=== PATIENT | female | born 1955 | race Caucasian/White ===

== ENCOUNTER → 2017-07-04 | Outpatient (CLI) | payer BC ==
--- NOTE | 2017-07-04 12:45 | ECHOS ---
STRESS ECHOCARDIOGRAM DATE OF SERVICE: 07/04/2017 INDICATIONS: Hypertension. MEDICATIONS: Aspirin. BASELINE HEART RATE: 71 BASELINE BLOOD PRESSURE: 143/80 MAXIMUM HEART RATE: 143 MAXIMUM BLOOD PRESSURE: 165/82 85% MPHR: 135 100% MPHR: 159 METS: 9.1 MAXIMUM STAGE REACHED: III TOTAL EXERCISE TIME: 8 minutes CLINICAL INFORMATION: Baseline EKG revealed normal sinus rhythm without significant ST-T changes. Patient walked for 8 minutes on a standard Mike protocol. Achieved a maximal heart rate of 143 beats per minute, which is more than 85% of predicted maximal. She developed fatigue and shortness of breath, but did not have angina. Rare PVCs were noted. By EKG criteria, this is a negative stress test with fair exercise capacity. Baseline echo images reveal an area of hypokinesis involving the inferobasal portion of left ventricle suggestive of prior myocardial infarction. There is no clear-cut clinical history to suggest the same. The rest of the myocardium seemed to contract very well. At peak exercise, there was good augmentation of left ventricular wall motion and wall thickening of all segments except the inferobasal area where there seems to be evidence of prior myocardial infarction. Sometimes it is very difficult to discern the inferobasal segment and the possibility of this being a false-positive cannot be totally excluded. IMPRESSION: 1. Fair exercise capacity with a negative stress test by EKG criteria. 2. Abnormal stress echocardiogram with inferobasal hypokinesia at rest suggestive prior myocardial infarction without stress-induced ischemia. The inferobasal segment is notoriously difficult to call and possibility of this being a false- positive should be considered. Clinical correlation is suggested. MMODL / IJN: [id number] /
== END | disposition home or self-care (01) ==
LOC: RADNMMAIN 09:50
PROVIDERS: ATTEND Family Medicine
DX: R93.1 Abnormal findings on diagnostic imaging of heart and coronary circulation (principal); I10 Essential (primary) hypertension
CPT/HCPCS: 93017; 93350

== ENCOUNTER → 2017-07-09 | Outpatient (CLI) | payer BC ==
--- NOTE | 2017-07-09 19:02 | CT ---
EXAMINATION TYPE: CT angio head neck DATE OF EXAM: 07/09/2017 HISTORY: Carotid stenosis. COMPARISON: NONE CT DLP: 401 mGycm. Automated Exposure Control for Dose Reduction was Utilized. TECHNIQUE: CTA scan of the neck is performed with IV Contrast, patient injected with 65ml mL of Omni paque 350, axial images are obtained, coronal and sagittal reformatted images are reviewed. Three-D r econstructed images are created on an independent workstation and reviewed. FINDINGS: There is normal branching pattern of the great vessels on the aortic arch. Vertebral arteries appear normal. There is arterial flow in the common internal and external carotid arteries. The carotid glenn ry bifurcations appear widely patent. There is no evidence of carotid stenosis at the bifurcations. T here is no evidence of aneurysm or dissection. There appears to be a stent in the distal left internal carotid artery extending from the level of C2 to the temporal bone. There appears to be normal contrast opacification of the internal carotid glenn bella at the skull base. There is intracranial symmetric contrast density in the internal carotid glenn bella. There is arterial flow in the anterior middle and posterior cerebral arteries. There is arterial flow in the vertebrobasilar artery system. There is no mass effect. There is no evidence of intracranial aneurysm or neovascularity. I see no evidence of stenosis. There is normal contrast opacification of the venous sinuses. CONCLUSION: Left distal internal carotid artery stent appears to be patent. No evidence of hemodynamically signif icant stenosis.
== END | disposition home or self-care (01) ==
LOC: RADCTMAIN 16:14
PROVIDERS: ATTEND Neurological Surgery
DX: I65.29 Occlusion and stenosis of unspecified carotid artery (principal); Z95.828 Presence of other vascular implants and grafts
CPT/HCPCS: 70496; 70498; Q9967

== ENCOUNTER → 2017-07-28 | Outpatient (CLI) | payer BC ==
--- NOTE | 2017-07-29 14:10 | MM ---
Reason for exam: screening (asymptomatic). Last mammogram was performed 4 years and 10 months ago. History: Patient is postmenopausal. Family history of breast cancer in maternal aunt, breast cancer in cousin, and breast cancer in mother. Took estrogen for 3 years. Physical Findings: Nurse did not find any significant physical abnormalities on exam. MG 3D Screening Mammo W/Cad Bilateral CC and MLO view(s) were taken. Prior study comparison: September 15, 2012, bilateral digital screening mammo w/CAD. September 11, 2010, bilateral digital screening mammo w/CAD. The breast tissue is heterogeneously dense. This may lower the sensitivity of mammography. There is a 4mm mass in the lower outer quadrant of the right breast at middle depth and a 4mm mass in the lower inner quadrant of the left breast at a middle depth. There is a group of 3mm calcifications in the upper outer quadrant of the left breast at middle depth 6-7cm from nipple. ASSESSMENT: Incomplete: need additional imaging evaluation, BI-RAD 0 RECOMMENDATION: Special view mammogram of both breasts. If lesion persists on supplemental views, image directed ultrasound is recommended. [facility] will attempt to contact patient to return for supplemental views and ultrasound if indicated.
== END | disposition home or self-care (01) ==
LOC: RADMAMWWP 14:43
PROVIDERS: ATTEND Family Medicine
DX: Z12.31 Encounter for screening mammogram for malignant neoplasm of breast (principal)
CPT/HCPCS: 77063; 77067

== ENCOUNTER → 2017-08-05 | Outpatient (CLI) | payer BC ==
--- NOTE | 2017-08-06 07:28 | MM ---
Reason for exam: additional evaluation requested from abnormal screening. Last mammogram was performed less than 1 month ago. History: Patient is postmenopausal. Family history of breast cancer in maternal aunt, breast cancer in cousin, and breast cancer in mother. Took estrogen for 3 years. Physical Findings: Nurse did not find any significant physical abnormalities on exam. MG 3D Work Up W/Cad JACK Bilateral spot compression CC, spot compression MLO, and ML view(s) were taken. ML with magnification and CC with magnification view(s) were taken of the left breast. Prior study comparison: July 28, 2017, bilateral MG 3d screening mammo w/ cad. September 15, 2012, bilateral digital screening mammo w/CAD. Finding #1: There is a 4 mm round mass in the lower outer quadrant, anterior position of the right breast persists. Finding #2: There are typically benign grouped/clustered calcifications in the upper outer quadrant of the left breast. Finding #3-- 5mm round left anterior lower inner quadrant. These results were verbally communicated with the patient and result sheet given to the patient on 08/05/17. ASSESSMENT: Incomplete: need additional imaging evaluation, BI-RAD 0 RECOMMENDATION: Ultrasound of both breasts.Findings 1 and 3 MTDD
--- NOTE | 2017-08-06 07:31 | USB ---
Reason for exam: additional evaluation requested from abnormal screening. History: Patient is postmenopausal. Family history of breast cancer in maternal aunt, breast cancer in cousin, and breast cancer in mother. Took estrogen for 3 years. US Breast Workup Limited JACK Right breast ultrasound includes all four quadrants, the retroareolar region and axilla. Finding demonstrates a 4 x 3 x 4mm oval, cystic lesion at 7 o'clock and a 2 x 2 x 3mm oval, cystic lesion at 10 o'clock. Left breast ultrasound includes all four quadrants, the retroareolar region and axilla. Finding demonstrates a 5 x 2 x 6mm lobular, mixed lesion at the posterior nipple. These results were verbally communicated with the patient and result sheet given to the patient on 08/05/17. ASSESSMENT: Probably benign, BI-RAD 3 Benign, BI-RAD 2 finding in the right breast. Probably benign, BI-RAD 3 finding in the left breast. RECOMMENDATION: Follow-up diagnostic mammogram and ultrasound of the left breast in 6 months.
== END | disposition home or self-care (01) ==
LOC: RADMAMWWP 14:26
PROVIDERS: ATTEND Family Medicine
DX: R92.2 Inconclusive mammogram (principal); R92.8 Other abnormal and inconclusive findings on diagnostic imaging of breast
CPT/HCPCS: 77066; 76642; G0279

== ENCOUNTER → 2018-01-27 | Outpatient (CLI) | payer SELFPAY ==
--- NOTE | 2018-01-27 12:53 | MM ---
Reason for exam: follow-up at short interval from prior study. Last mammogram was performed 6 months ago. History: Patient is postmenopausal. Family history of breast cancer in maternal aunt, breast cancer in cousin, and breast cancer in mother. Took estrogen for 3 years. Physical Findings: Nurse did not find any significant physical abnormalities on exam. MG 3D Diag Mammo W/Cad LT CC and MLO view(s) were taken of the left breast. Prior study comparison: August 05, 2017, bilateral MG 3d work up w/cad JACK. July 28, 2017, bilateral MG 3d screening mammo w/cad. The breast tissue is heterogeneously dense. This may lower the sensitivity of mammography. There is a stable sonographically occult lower inner quadrant mass at middle depth. There is a stable 3mm group of left upper outer quadrant calcifications at middle depth. Continued 6 month follow up. No new suspicious abnormality. These results were verbally communicated with the patient and result sheet given to the patient on 01/27/18. ASSESSMENT: Probably benign, BI-RAD 3 RECOMMENDATION: Follow-up diagnostic mammogram of both breasts in 6 months. Ultrasound of the left breast in 6 months.
--- NOTE | 2018-01-27 12:55 | USB ---
Reason for exam: follow-up at short interval from prior study. History: Patient is postmenopausal. Family history of breast cancer in maternal aunt, breast cancer in cousin, and breast cancer in mother. Took estrogen for 3 years. US Breast LT Left complete breast ultrasound includes all four quadrants, the retroareolar region and axilla. Finding demonstrates duct ectasia at the posterior nipple and a 0.3 x 0.3 x 0.2cm cystic lesion at the posterior nipple, appears smaller than prior but more irregular. Likely involuting cyst. 6 month follow up. These results were verbally communicated with the patient and result sheet given to the patient on 01/27/18. ASSESSMENT: Probably benign, BI-RAD 3 RECOMMENDATION: Ultrasound of the left breast in 6 months.
== END | disposition home or self-care (01) ==
LOC: RADMAMWWP 09:38
PROVIDERS: ATTEND Family Medicine
DX: R92.8 Other abnormal and inconclusive findings on diagnostic imaging of breast (principal)
CPT/HCPCS: 77061; 77065

== ENCOUNTER → 2020-09-25 | Outpatient (CLI) | payer MEDICARE, BC ==
--- NOTE | 2020-09-25 15:50 | XR ---
EXAMINATION TYPE: XR chest 2V DATE OF EXAM: 09/25/2020 COMPARISON: Chest x-ray 03/01/2014 HISTORY: History of COPD, Z 72.0, Z 87.09 TECHNIQUE: Frontal and lateral views of the chest are obtained. FINDINGS: There is no focal air space opacity, pleural effusion, or pneumothorax seen. The cardiac silhouette size is stable. Pericardial cyst at the right cardiophrenic angle is again seen. The aorta is dense. The osseous structures are intact, there is thoracic spondylosis. IMPRESSION: No acute cardiopulmonary process.
== END | disposition home or self-care (01) ==
LOC: RADXRMAIN 10:27
PROVIDERS: ATTEND Family Medicine
DX: J44.9 Chronic obstructive pulmonary disease, unspecified (principal)
CPT/HCPCS: 71046

== ENCOUNTER → 2020-09-25 | Outpatient (CLI) | payer MEDICARE, BC ==
--- NOTE | 2020-09-25 13:23 | MM ---
Reason for exam: additional evaluation requested from prior study. Last mammogram was performed 2 years and 8 months ago. History: Patient is postmenopausal. Family history of breast cancer in maternal aunt, breast cancer in cousin, and breast cancer in mother. Took estrogen for 3 years. Physical Findings: Nurse did not find any significant physical abnormalities on exam. MG 3D Diag Mammo W/Cad JACK Bilateral CC and MLO view(s) were taken. Prior study comparison: January 27, 2018, left breast MG 3d diag mammo w/cad LT. August 05, 2017, bilateral MG 3d work up w/cad JACK. The breast tissue is heterogeneously dense. This may lower the sensitivity of mammography. Stable benign calcifications. There is chronic nodularity bilaterally. There is no dominant lesion. There is no discrete abnormality including area of concern. No significant new findings when compared with previous films. These results were verbally communicated with the patient and result sheet given to the patient on 09/25/20. ASSESSMENT: Incomplete: need additional imaging evaluation, BI-RAD 0 RECOMMENDATION: Ultrasound of the left breast. Manage patient on a clinical basis.
--- NOTE | 2020-09-25 13:24 | USB ---
Reason for exam: additional evaluation requested from abnormal screening. History: Patient is postmenopausal. Family history of breast cancer in maternal aunt, breast cancer in cousin, and breast cancer in mother. Took estrogen for 3 years. US Breast LT Technologist: Farheen Hopson Left complete breast ultrasound includes all four quadrants, the retroareolar region and axilla. Finding demonstrates a 1.9 x 0.7cm lymph node at the axilla and a questionable duct at the posterior nipple. These results were verbally communicated with the patient and result sheet given to the patient on 09/25/20. ASSESSMENT: Benign, BI-RAD 2 RECOMMENDATION: Routine screening mammogram of both breasts in 1 year. Manage patient on a clinical basis.
== END | disposition home or self-care (01) ==
LOC: RADMAMWWP 08:54
PROVIDERS: ATTEND Family Medicine
DX: R92.8 Other abnormal and inconclusive findings on diagnostic imaging of breast (principal); Z80.3 Family history of malignant neoplasm of breast; Z78.0 Asymptomatic menopausal state
CPT/HCPCS: 77066; 76641; G0279; 77062

== ENCOUNTER → 2020-10-18 | Outpatient (CLI) | payer MEDICARE ==
--- NOTE | 2020-10-18 15:39 | US ---
EXAMINATION TYPE: US carotid duplex BILAT DATE OF EXAM: 10/18/2020 COMPARISON: US 11/04/13 CLINICAL HISTORY: I65.22 Occlusion and stenosis of left carotid glenn. Left sided stent. Pt states hx stroke EXAM MEASUREMENTS: RIGHT: Peak Systolic Velocity (PSV) cm/sec ----- Right CCA: 131.9 ----- Right ICA: 114.8 ----- Right ECA: 113.5 ICA/CCA ratio: 0.9 RIGHT: End Diastole cm/sec ----- Right CCA: 41.4 ----- Right ICA: 28.0 ----- Right ECA: 26.7 LEFT: Peak Systolic Velocity (PSV) cm/sec ----- Left CCA: 82.4 ----- Left ICA: 114.1 ----- Left ECA: 64.5 ICA/CCA ratio: 1.4 LEFT: End Diastole cm/sec ----- Left CCA: 29.3 ----- Left ICA: 26.8 ----- Left ECA: 15.0 VERTEBRALS (direction of flow): Right Vertebral: Antegrade Left Vertebral: Antegrade Rhythm: Normal Mild atherosclerotic changes. Tortuous left side. No stenosis seen. IMPRESSION: 1. Atheromatous plaquing without flow limiting stenosis. Criteria for Assigning % of Stenosis / Diameter reduction (Estimation based on the indirect measurements of the internal carotid artery velocities (ICA PSV). 1. Normal (no stenosis)=ICA PSV < 125 cm/s: ratio < 2.0: ICA EDV<40 cm/s. 2. Less than 50% stenosis=ICA PSV < 125 cm/s: ratio < 2.0: ICA EDV<40 cm/s. 3. 50 to 69% stenosis=ICA PSV of 125 to 230 cm/s: ration 2.0 ? 4.0: ICA EDV 40-100 cm/s. 4. Greater than 70% stenosis to near occlusion= ICA PSV > 230 cm/s: ratio > 4.0: ICA EDV > 100 cm/s. 5. Near occlusion= ICA PSV velocities may be low or undetectable: variable ratio and ICA EDV. 6. Total occlusion=unable to detect flow.
== END | disposition home or self-care (01) ==
LOC: RADUSWWP 14:58
PROVIDERS: ATTEND Family Medicine
DX: I65.23 Occlusion and stenosis of bilateral carotid arteries (principal)
CPT/HCPCS: 93880

== ENCOUNTER → 2020-12-20 | Outpatient (CLI) | payer MEDICARE ==
--- NOTE | 2020-12-20 22:11 | CT ---
EXAMINATION TYPE: CT chest wo/w con DATE OF EXAM: 12/20/2020 COMPARISON: Chest x-ray 09/25/2020, CT chest abdomen pelvis 11/11/2012 HISTORY: Aortic ectasia CT DLP: 667.30 mGycm Automated exposure control for dose reduction was used. CONTRAST: CT scan of the chest is performed with IV Contrast, patient injected with 80 mL of Isovue 300. FINDINGS: LUNGS: The lungs are grossly clear, there is no concerning parenchymal mass or nodule identified. T here is no pleural effusion or pneumothorax seen. The tracheobronchial tree is patent. MEDIASTINUM: There are no greater than 1 cm hilar or mediastinal lymph nodes. No pericardial effusi on is seen. AORTA: Ascending aorta measures 3.9 cm in size, aortic root is not dilated. Proximal descending aort a measures 2.4 cm OTHER: There is a water density focus present at the right cardiophrenic angle measuring approximatel y 10.6 x 8.7 x 4.2 cm consistent with pericardial cyst and is grown slightly in interval. Parapelvic cysts noted within the kidneys incidentally. IMPRESSION: Borderline aneurysmal measurement of the ascending aorta. Pericardial cyst is again seen .
== END | disposition home or self-care (01) ==
LOC: RADCTMAIN 17:56
PROVIDERS: ATTEND Internal Medicine Interventional Cardiology
DX: I77.819 Aortic ectasia, unspecified site (principal); Q24.8 Other specified congenital malformations of heart; I71.2 Thoracic aortic aneurysm, without rupture
CPT/HCPCS: 82565; 84520; 71270; 36415; Q9967

== ENCOUNTER 2021-01-16 09:00 | Day surgery (SDC) | payer MEDICARE ==
[2021-01-12 11:55] VITALS: BMI 30.9
[2021-01-16] MEDS ORDERED: NITROGLYCERIN SL TABS 0.4 MG TAB SUBLINGUAL PRN (09:05)
[2021-01-16] MEDS ORDERED: ALPRAZolam 0.25 MG TAB PO PRN (09:05)
[2021-01-16] MEDS ORDERED: ALPRAZolam 0.5 MG TAB PO PRN (09:05)
[2021-01-16] MEDS ORDERED: SODIUM CHLORIDE 0.9% 1,000 ML in EMPTY BAG 1 BAG IV ONE (09:05)
[2021-01-16] MEDS ORDERED: HEPARIN SODIUM,PORCINE 2,500 UNIT in SODIUM CHLORIDE 0.9% 250 ML IRRIGATION PRN (09:05)
[2021-01-16] MEDS ORDERED: ASPIRIN 325 MG TAB PO STA (09:05)
[2021-01-16] MEDS ORDERED: HEPARIN SODIUM,PORCINE 10,000 UNIT in SODIUM CHLORIDE 0.9% 1,000 ML IRRIGATION PRN (09:05)
[2021-01-16] MEDS ORDERED: ATORVASTATIN 80 MG TAB PO STA (09:05)
[2021-01-16 09:35] LABS: Basophils # (A) 0.1 k/uL (0-0.2); Basophils % (A) 1 %; Eosinophils # (A) 0.3 k/uL (0-0.7); Eosinophils % (A) 4 %; HCT 45.1 % (34.0-46.0); HGB 15.6 gm/dL (11.4-16.0); Lymphocytes # (A) 1.9 k/uL (1.0-4.8); Lymphocytes % (A) 28 %; MCH 31.4 pg (25.0-35.0); MCHC 34.5 g/dL (31.0-37.0); MCV 90.8 fL (80.0-100.0); Mean Platelet Volume 7.4; Monocytes # (A) 0.5 k/uL (0-1.0); Monocytes % (A) 7 %; Neutrophils # (A) 3.9 k/uL (1.3-7.7); Neutrophils % (A) 59 %; Platelet Count 209 k/uL (150-450); RBC 4.96 m/uL (3.80-5.40); RDW 12.7 % (11.5-15.5); WBC 6.6 k/uL (3.8-10.6)
[2021-01-16 10:43] LABS: African American GFR (CKD) >90 (>60 ml/min/1.73 sqM); Anion Gap 5 mmol/L; Blood Urea Nitrogen 14 mg/dL (7-17); Calcium 9.9 mg/dL (8.4-10.2); Carbon Dioxide 29 mmol/L (22-30); Chloride 106 mmol/L (98-107); Glucose 89 mg/dL (74-99); Non-African American GFR(CKD) 81 (>60 ml/min/1.73 sqM); Sodium 140 mmol/L (137-145)
[2021-01-16 11:03] LABS: Potassium 4.5 mmol/L (3.5-5.1)
[2021-01-16] MEDS ORDERED: SODIUM CHLORIDE 0.9% 1,000 ML IV ONE (12:10)
[2021-01-16] MEDS ORDERED: MIDAZOLAM 2 MG/2 ML VIAL IV ONE ×2 (13:11→13:18)
[2021-01-16] MEDS: fentaNYL (PF) 50 MCG/ML 2 ML AMP IV ONE ×2 (13:15→13:20)
[2021-01-16] MEDS ORDERED: LIDOCAINE 1% INJ 10MG/ML (20 ML MDV) SQ ONE (13:16)
[2021-01-16] MEDS: VERAPAMIL SYRINGE (5 MG/10 ML) INTRAARTER ONE ×2 (13:18→13:23)
[2021-01-16] MEDS ORDERED: HEPARIN SODIUM 1,000 UN/ML (10ML VL) IV ONE (13:19)
[2021-01-16] MEDS ORDERED: IOPAMIDOL-370 100ML BTL INJ ONE (13:28)
[2021-01-16] MEDS ORDERED: RX INFO: IV CONTRAST WAS GIVEN 1 EACH MISC MISCELLANE PRN (13:39)
[2021-01-16] MEDS ORDERED: HYDROmorphone 1 MG/ML 1 ML SYRINGE ONE ×2 (13:42→16:37)
[2021-01-16] MEDS ORDERED: SODIUM CHLORIDE 0.9% 1,000 ML IV SCH (13:45)
--- NOTE | 2021-01-16 15:25 | CC ---
CARDIAC CATHETERIZATION REPORT DATE OF SERVICE: January 16, 2021. PERFORMING PHYSICIAN: Gavin Sandoval MD. PROCEDURE PERFORMED: 1. Selective right and left coronary angiogram. 2. Left heart catheterization. INDICATION: This is a pleasant 65-year-old female patient with carotid disease as well as multiple risk factors including dyslipidemia and significant family history, continues to have intermittent episodes of chest discomfort. She underwent an exercise treadmill stress test and that came into be unremarkable but because she continues to be symptomatic, a heart catheterization was advised. APPROACH: Right radial artery. COMPLICATION: None. LEVEL OF SEDATION: Moderate with sedation length of 14 minutes. PROCEDURE DESCRIPTION: After obtaining informed consent, the patient was brought to the cardiac microbiology lab analyst. The right radial artery was cannulated using micropuncture technique, the micropuncture wire passed easily then I placed a 6-Armenian sheath at the right radial artery. Subsequently, I gave the patient 2 mg of verapamil IA and 8000 units of heparin IV. Selective right and left coronary angiogram were performed using JR4 and JL3.5 catheters. Left heart catheterization was performed using the JR4 catheter which crossed the aortic valve then I did pullback across the valve. Please note that the patient was having a right arm discomfort throughout the procedure and for future heart catheterization, right groin approach would be preferable. SELECTIVE CORONARY ANGIOGRAM: 1. The RCA is a large caliber vessel. It is a dominant vessel, appeared to be angiographically normal. It distally bifurcates into PDA and PLV branches, both appeared to be angiographically normal. 2. The left main is angiographically normal. It bifurcates into LCX and LAD. 3. The LCX is a moderate caliber vessel. It is a nondominant vessel. The LCX is angiographically normal. It gives rise into an OM branch which appeared to be normal. 4. The LAD: The proximal LAD appeared to be angiographically normal. The mid LAD by the bifurcation of the diagonal branch appeared to have a lesion in the range of 50%. The LAD at that portion gives rise into a large diagonal branch which seems to be angiographically normal. The mid and distal LAD appeared to be angiographically normal. HEMODYNAMICS: The LVEDP was 10 mmHg without significant gradient across the aortic valve. CONCLUSION: Intermediate lesion involving the mid LAD appeared to be in the range of 50-60 percent. POSTPROCEDURE MANAGEMENT: 1. Maximize medical treatment. 2. Consider myocardial perfusion imaging stress test if she continues to be symptomatic to assess for ischemia in the LAD. 3. Follow up with the patient. MMBEBO / IJN: [id number] /
[2021-01-16] MEDS ORDERED: ACETAMINOPHEN TAB 325 MG TAB ONE (16:09)
[2021-01-16] MEDS ORDERED: ONDANSETRON 4 MG/2 ML VIAL ONE (17:49)
[2021-01-16] MEDS ORDERED: ATORVASTATIN 40 MG TAB PO SCH (21:00)
[2021-01-17 07:27] VITALS: BP 115/74; PULSE 59; RESP 17; TEMP 97.4
[2021-01-17] MEDS: SODIUM CHLORIDE 0.9% 1,000 ML IV SCH (07:46)
[2021-01-17] MEDS ORDERED: CHOLECALCIFEROL 25 MCG (1000 IU) TABLET PO SCH (09:00)
[2021-01-17] MEDS ORDERED: ASPIRIN 81 MG PO SCH (09:00)
--- NOTE | 2021-01-17 14:45 | P.DS ---
Providers Attending physician: Gavin Sandoval Primary care physician: [facility] Hospital Course: INTERVAL HISTORY: The patient is a 65-year-old female admitted to the hospital by Dr. Dr. Sandoval. Patient isn't a past medical history of carotid disease, dyslipidemia, significant family history. She continued to have intermittent episodes of chest discomfort. She underwent exercise treadmill stress test which came to be unremarkable but continues to be symptomatic. A heart jose terization was advised. Patient underwent cardiac catheterization on 01/16/2021 which revealed intermediate lesion involving the mid LAD appear to be in the range of 50-60%. At this time is recommended to maximize medical therapy. PHYSICAL EXAMINATION: Blood pressure 115/74, heart rate 59, respirations 16, temp 97.7. Patient is 95% on room air. HEART: S1, S2 normal. LUNGS: Clear to auscultation. NECK: Supple. ABDOMEN: Soft. EXTREMITIES: 2+ peripheral pulses. Right radial cath site, clean, dry, bruising noted, small hematoma. Tender to palpation. LAB DATA: from 01/16 revealed CBC unremarkable, sodium 140, potassium 4.5, BUN 14, serum, 0.77 FINAL IMPRESSION: 1. Coronary artery disease 2. Dyslipidemia PLAN: Reviewed heart cath results with patient. Patient may be able to be disch arged home today. Patient will continue her aspirin 81 mg daily atorvastatin 40 mg nightly. This was discussed with patient. We will make him a follow-up appointment with Dr. Sandoval. Patient has an appointment on 01/24/2020 11:45 AM Plan - Discharge Summary Discharge Rx Participant: No New Discharge Prescriptions: Continue Aspirin 81 mg PO DAILY Cholecalciferol [Vitamin D3 (25 Mcg = 1000 Iu)] 2,000 units PO DAILY Atorvastatin [Lipitor] 40 mg PO HS Discharge Medication List Aspirin 81 mg PO DAILY 01/12/21 [History] Atorvastatin [Lipitor] 40 mg PO HS 01/12/21 [History] Cholecalciferol [Vitamin D3 (25 Mcg = 1000 Iu)] 2,000 units PO DAILY 01/12/21 [History] Follow up Appointment(s)/Referral(s): Gavin Sandoval MD [STAFF PHYSICIAN] - 01/23/21 11:45 am Patient Instructions/Handouts: Moderate Sedation (DC), After Radial Heart Catheterization (GEN) Activity/Diet/Wound Care/Special Instructions: No lifting/pushing/pulling greater than 5 lbs for 5 days with right arm. Remove dressing tomorrow afternoon. No need to re-dress. You may shower tomorrow after removal of dressing. No soaking puncture site for 3 days (such as swim or tub). You may drive . Discharge Disposition: HOME SELF-CARE
== END 2021-01-17 11:25 | disposition home or self-care (01) ==
LOC: CATHCVL 09:00 → 6NMEDSUR 13:29 → CATHCVL 01-17 11:25
PROVIDERS: ATTEND Internal Medicine Interventional Cardiology
DX: I25.110 Atherosclerotic heart disease of native coronary artery with unstable angina pectoris (principal); E78.5 Hyperlipidemia, unspecified; Z82.49 Family history of ischemic heart disease and other diseases of the circulatory system; I73.9 Peripheral vascular disease, unspecified; F17.210 Nicotine dependence, cigarettes, uncomplicated; I08.0 Rheumatic disorders of both mitral and aortic valves; I65.23 Occlusion and stenosis of bilateral carotid arteries; Z79.899 Other long term (current) drug therapy; Z79.82 Long term (current) use of aspirin; Z86.73 Personal history of transient ischemic attack (TIA), and cerebral infarction without residual deficits; E78.00 Pure hypercholesterolemia, unspecified
CPT/HCPCS: 93458; 80048; 85025; C1894; J2250; J2405; J2001; J3010; J1644; J1170; Q9967

== ENCOUNTER → 2021-05-04 | Outpatient (CLI) | payer MEDICARE ==
--- NOTE | 2021-05-04 11:36 | USB ---
Reason for exam: clinical finding. History: Patient is postmenopausal. Family history of breast cancer in maternal aunt, breast cancer in cousin, and breast cancer in mother. Took estrogen for 3 years. Indicated problem(s): pain in the left breast. Physical Findings: Nurse did not find any significant physical abnormalities on exam. US Breast LT Prior study comparison: September 25, 2020, left breast US breast LT. Left complete breast ultrasound includes all four quadrants, the retroareolar region and axilla. Finding demonstrates no cystic or solid lesion seen. These results were verbally communicated with the patient and result sheet given to the patient on 05/04/21. ASSESSMENT: Negative, BI-RAD 1 RECOMMENDATION: Follow-up diagnostic mammogram of both breasts in 6 months. Can be scanned early diagnostic for changing clinical findings. Manage on a clinical basis with regard to pain.
== END | disposition home or self-care (01) ==
LOC: RADUSWWP 08:28
PROVIDERS: ATTEND Family Medicine
DX: N64.4 Mastodynia (principal); Z80.3 Family history of malignant neoplasm of breast; Z78.0 Asymptomatic menopausal state

== ENCOUNTER 2022-03-17 03:50 | Emergency (ER) | payer MEDICARE ==
[2022-03-17 03:56] VITALS: BP 127/80; PULSE 79; RESP 16; TEMP 98.1
[2022-03-17] MEDS ORDERED: SODIUM CHLORIDE 0.9% 1,000 ML IV ONE (04:32)
[2022-03-17] MEDS ORDERED: ONDANSETRON 4 MG/2 ML VIAL IVP STA (04:32)
[2022-03-17] MEDS ORDERED: MORPHINE SULFATE 4 MG/ML SYRINGE IV STA (04:32)
--- NOTE | 2022-03-17 04:33 | ED ---
Fall HPI - General Chief Complaint: Fall Stated Complaint: Fall, Shoulder Injury Time Seen by Provider: 03/17/22 03:51 Source: patient, EMS, RN notes reviewed, old records reviewed Mode of arrival: EMS Limitations: no limitations - History of Present Illness Initial Comments: This is a 66-year-old female presenting with mild intoxication mild alteration. Patient was brought in by EMS after falling off of her tach after getting out of her Jacuzzi. Patient is complaining of significant right-sided pain neck pain head pain back pain tox pain, right shoulder pain right hip pain. 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 Place Fall Occurred: home Loss of Consciousness: none Prolonged Down Time?: no Symptoms Prior to Fall: none Location: head, neck, chest, back, pelvis Location - Extremities: Right: Shoulder, Arm, Thigh Severity: moderate Severity scale (1-10): 6 Quality: sharp, dull, aching Context: tripped/slipped, alcohol use Associated Symptoms: denies - Related Data Home Medications Medication Instructions Recorded Confirmed Aspirin 81 mg PO DAILY 01/12/21 01/16/21 Atorvastatin [Lipitor] 40 mg PO HS 01/12/21 01/16/21 Cholecalciferol [Vitamin D3 (25 2,000 units PO DAILY 01/12/21 01/16/21 Mcg = 1000 Iu)] Allergies Allergy/AdvReac Type Severity Reaction Status Date / Time epinephrine AdvReac Rapid Verified 01/12/21 11:34 Heart Rate methylprednisolone acetate AdvReac Rapid Verified 01/12/21 11:34 [From Depo-Medrol] Heart Rate Review of Systems ROS Statement: Those systems with pertinent positive or pertinent negative responses have been documented in the HPI. ROS Other: All systems not noted in ROS Statement are negative. 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 aneurysm left carotid, hiatal hernia, chronic back pain, stroke in past-residual numbness tingling left face, doesn't need thyroid med anymore Last Myocardial Infarction Date:: Unknown History of Any Multi-Drug Resistant Organisms: None Reported Past Surgical History: Heart Catheterization, Hysterectomy, Tubal Ligation Additional Past Surgical History / Comment(s): Colonoscopy, ganglion cyst removed, EGD, Carotid stent left side Past Anesthesia/Blood Transfusion Reactions: No Reported Reaction Past Psychological History: No Psychological Hx Reported Smoking Status: Current every day smoker Past Alcohol Use History: None Reported Additional Past Alcohol Use History / Comment(s): 1ppd for 30 yrs. Past Drug Use History: None Reported General Exam Limitations: no limitations General appearance: alert, in no apparent distress, appears intoxicated Head exam: Present: atraumatic, normocephalic, normal inspection Eye exam: Present: normal appearance, PERRL, EOMI. Absent: scleral icterus, conjunctival injection, periorbital swelling ENT exam: Present: normal exam, mucous membranes moist Neck exam: Present: normal inspection. Absent: tenderness, meningismus, lymphadenopathy Respiratory exam: Present: normal lung sounds bilaterally. Absent: respiratory distress, wheezes, rales, rhonchi, stridor Cardiovascular Exam: Present: regular rate, normal rhythm, normal heart sounds. Absent: systolic murmur, diastolic murmur, rubs, gallop, clicks GI/Abdominal exam: Present: soft, normal bowel sounds. Absent: distended, tenderness, guarding, rebound, rigid Extremities exam: Present: normal inspection, full ROM, normal capillary refill. Absent: tenderness, pedal edema, joint swelling, calf tenderness Back exam: Present: normal inspection Neurological exam: Present: alert, oriented X3, CN II-XII intact Psychiatric exam: Present: normal affect, normal mood Skin exam: Present: warm, dry, intact, normal color. Absent: rash Course Vital Signs 03/17/22 03:54 Temperature 98.1 F Pulse Rate 79 Respiratory 16 Rate Blood Pressure 127/80 O2 Sat by Pulse 98 Oximetry - Reevaluation(s) Reevaluation #1: 03/17/22 04:53 Medical record is reviewed Reevaluation #2: 03/17/22 06:06 Patient's pain is improved, able to ambulate Reevaluation #3: 03/17/22 06:06 Patient informed results and questions are answered Medical Decision Making - Medical Decision Making 66 female status post fall slipped off a porch on the ground. Patient has right-sided pain. X-ray CT scans are negative. Patient is intoxicated, patient will be getting a ride home today and can be discharged - Lab Data Result diagrams: 03/17/22 05:01 03/17/22 05:01 Lab Results 03/17/22 03/17/22 Range/Units 05:01 05:01 WBC 9.3 (3.8-10.6) k/uL RBC 4.72 (3.80-5.40) m/uL Hgb 14.8 (11.4-16.0) gm/dL Hct 44.9 (34.0-46.0) % MCV 95.0 (80.0-100.0) fL MCH 31.4 (25.0-35.0) pg MCHC 33.1 (31.0-37.0) g/dL RDW 13.4 (11.5-15.5) % Plt Count 240 (150-450) k/uL MPV 8.1 Neutrophils % 67 % Lymphocytes % 24 % Monocytes % 4 % Eosinophils % 2 % Basophils % 1 % Neutrophils # 6.2 (1.3-7.7) k/uL Lymphocytes # 2.3 (1.0-4.8) k/uL Monocytes # 0.4 (0-1.0) k/uL Eosinophils # 0.2 (0-0.7) k/uL Basophils # 0.1 (0-0.2) k/uL Sodium 144 (137-145) mmol/L Potassium 4.2 (3.5-5.1) mmol/L Chloride 110 H (98-107) mmol/L Carbon Dioxide 18 L (22-30) mmol/L Anion Gap 16 mmol/L BUN 16 (7-17) mg/dL Creatinine 0.84 (0.52-1.04) mg/dL Est GFR (CKD-EPI)AfAm 84 (>60 ml/min/1.73 sqM) Est GFR (CKD-EPI)NonAf 73 (>60 ml/min/1.73 sqM) Glucose 93 (74-99) mg/dL Calcium 9.0 (8.4-10.2) mg/dL Phosphorus 3.8 (2.5-4.5) mg/dL Magnesium 2.1 (1.6-2.3) mg/dL Total Bilirubin 0.4 (0.2-1.3) mg/dL AST 65 H (14-36) U/L ALT 51 H (4-34) U/L Alkaline Phosphatase 80 (38-126) U/L Total Protein 7.3 (6.3-8.2) g/dL Albumin 4.4 (3.5-5.0) g/dL Serum Alcohol 187 mg/dL - Radiology Data Radiology results: report reviewed (CT brain C-spine chest and pelvis x-ray, right shoulder x-ray negative for traumatic injury), image reviewed Disposition Clinical Impression: Fall, Alcohol intoxication, Contusion of right shoulder Disposition: HOME SELF-CARE Condition: Good Instructions (If sedation given, give patient instructions): Fall Prevention (ED), Contusion in Adults (ED) Is patient prescribed a controlled substance at d/c from ED?: No Referrals: Laura Schultz MD [Primary Care Provider] - 1-2 days Time of Disposition: 06:10
[2022-03-17 05:16] LABS: Basophils # (A) 0.1 k/uL (0-0.2); Basophils % (A) 1 %; Eosinophils # (A) 0.2 k/uL (0-0.7); Eosinophils % (A) 2 %; HCT 44.9 % (34.0-46.0); HGB 14.8 gm/dL (11.4-16.0); Lymphocytes # (A) 2.3 k/uL (1.0-4.8); Lymphocytes % (A) 24 %; MCH 31.4 pg (25.0-35.0); MCHC 33.1 g/dL (31.0-37.0); Mean Platelet Volume 8.1; Monocytes # (A) 0.4 k/uL (0-1.0); Monocytes % (A) 4 %; Neutrophils # (A) 6.2 k/uL (1.3-7.7); Neutrophils % (A) 67 %; Platelet Count 240 k/uL (150-450); RBC 4.72 m/uL (3.80-5.40); RDW 13.4 % (11.5-15.5); WBC 9.3 k/uL (3.8-10.6)
[2022-03-17 05:31] LABS: Albumin 4.4 g/dL (3.5-5.0); Total Bilirubin 0.4 mg/dL (0.2-1.3); Total Protein 7.3 g/dL (6.3-8.2)
[2022-03-17 05:41] LABS: Magnesium 2.1 mg/dL (1.6-2.3); Phosphorus 3.8 mg/dL (2.5-4.5); Potassium 4.2 mmol/L (3.5-5.1)
--- NOTE | 2022-03-17 05:43 | CT ---
EXAMINATION TYPE: CT brain cspine wo con DATE OF EXAM: 03/17/2022 COMPARISON: None HISTORY: Fall CT DLP: 1300.9 mGycm Automated exposure control for dose reduction was used. There is mild cerebral cortical atrophy. There is no mass effect or midline shift. No sign of intracr anial hemorrhage. Calvarium is intact. No evidence of cerebral edema. Skull base is intact. There is normal aeration of the mastoid sinuses. The cervical vertebra have normal alignment. No compression fracture. Posterior elements are intact. There is multilevel mild facet arthropathy. There is some disc space narrowing and spur formation in the lower cervical spine. IMPRESSION: Spondylotic changes in the cervical spine. No fracture. Negative CT scan of the brain. No evidence of traumatic injury.
--- NOTE | 2022-03-17 05:45 | XR ---
EXAMINATION TYPE: XR chest 1V DATE OF EXAM: 03/17/2022 COMPARISON: NONE HISTORY: Fall. Pain TECHNIQUE: Single view FINDINGS: There is no heart failure nor confluent pneumonic infiltrate. Costophrenic angles are clear . There are no hilar masses. IMPRESSION: No active cardiopulmonary disease.
--- NOTE | 2022-03-17 05:47 | XR ---
EXAMINATION TYPE: XR shoulder complete RT DATE OF EXAM: 03/17/2022 COMPARISON: NONE HISTORY: Pain TECHNIQUE: 3 view FINDINGS: Glenohumeral joint appears intact. There is no sign of fracture nor dislocation. Scapula ap pears intact. IMPRESSION: Negative right shoulder exam. There is limited visualization of right upper ribs that anaya ear to show at least fracture of the lateral fourth rib.
--- NOTE | 2022-03-17 05:48 | XR ---
EXAMINATION TYPE: XR Hip RT and AP Pelvis DATE OF EXAM: 03/17/2022 COMPARISON: NONE HISTORY: Fall. Pain TECHNIQUE: 3 views FINDINGS: Pelvic ring is intact. Proximal right femur and hip joint are intact. No hip dysplasia. Sac roiliac joints are intact. IMPRESSION: Negative pelvis and right hip exam
[2022-03-17] MEDS ORDERED: IBUPROFEN 600 MG STARTER PACK 4 TAB BTL PO STA (06:05)
[2022-03-17] MEDS ORDERED: KETOROLAC 15 MG/ML 1 ML VIAL IVP STA (06:05)
[2022-03-17] MEDS ORDERED: ACET/COD 300 MG/30 MG STARTER PACK 6 TAB BTL PO STA (06:05)
== END 2022-03-17 11:18 | disposition home or self-care (01) ==
LOC: EC 03:50
DX: F10.129 Alcohol abuse with intoxication, unspecified (principal); S40.011A Contusion of right shoulder, initial encounter; W18.2XXA Fall in (into) shower or empty bathtub, initial encounter; I25.10 Atherosclerotic heart disease of native coronary artery without angina pectoris; Z79.82 Long term (current) use of aspirin; E78.5 Hyperlipidemia, unspecified; I25.2 Old myocardial infarction; F17.200 Nicotine dependence, unspecified, uncomplicated; Z88.6 Allergy status to analgesic agent; Z88.2 Allergy status to sulfonamides
CPT/HCPCS: 36415; 80053; 83735; 84100; 85025; 73502; 73030; 71045; 72125; 70450; 99285; 96374; 96375; G0480; J2270; J2405; 80320

== ENCOUNTER → 2022-03-29 | Outpatient (CLI) | payer MEDICARE ==
--- NOTE | 2022-03-29 13:51 | XR ---
No sacral spine HISTORY: [id number] [id number] 5 views of lumbosacral spine No evident spondylolysis or spondylolisthesis. Lumbar vertebral bodies show preserved height. Bone mi neralization is reduced. Minimal anterolisthesis grade 1 L4-5. Sclerosis present in the lower lumbar spine. There is loss of disc height at intervertebral levels. Multilevel spondylosis. Possible rib fr acture at the 11 level. IMPRESSION: Degenerative disc disease, facet arthropathy, low bone mineralization may limit density. See dictated report of series.
--- NOTE | 2022-03-29 13:52 | XR ---
Right clavicle HISTORY: [id number] M546 R0781 2 views the right clavicle There is a proximal diaphyseal right clavicular fracture with displacement, bayonet apposition. Right -sided rib fracture is noted incidentally. No evident pneumothorax, right lung apex as visualized is unremarkable. IMPRESSION: Central right clavicular fracture
--- NOTE | 2022-03-29 13:56 | XR ---
Bilateral RIBS HISTORY: [id number] M546 R0781 4 views of of the left and right ribs submitted Thoracic spondylosis is present. Low bone mineralization could limit evaluation. No evident displaced rib fracture on the left. Patient's right clavicular fracture is noted incidentally. Right fourth rib, posterior third rib show minimally displaced fractures. No evident pneumothorax or pleural effusion. Some probable basilar atelectasis noted. IMPRESSION: Right third and fourth rib fractures. Evaluation somewhat limited, bone scan could be per formed for additional evaluation versus CT, right clavicular fracture.
--- NOTE | 2022-03-29 13:58 | XR ---
EXAMINATION TYPE: XR chest 2V DATE OF EXAM: 03/29/2022 COMPARISON: Chest x-ray 03/17/2022 HISTORY: [id number] M546 R0781 TECHNIQUE: Frontal and lateral views of the chest are obtained. FINDINGS: Right clavicle fracture with bayonet apposition is noted. Posterior right third, right fou rth rib fractures noted again. No evident pneumothorax or pleural effusion. Cardiac mediastinal silho uette is stable. Aorta is dense. There is multilevel thoracic spondylosis. IMPRESSION: Rib fractures, clavicle fracture, basilar atelectasis. No evident pneumothorax.
--- NOTE | 2022-03-29 14:00 | XR ---
Thoracic spine HISTORY: [id number] M546 R0781 2 views of thoracic spine on 3 images There is a slight spinal curvature. Multilevel spondylosis is present. Bone mineralization is reduced . Patient's right clavicular fracture, posterior right third rib fracture, fourth rib fracture again noted. Basilar atelectatic changes present. impression: No acute fracture or subluxation thoracic spine. Right-sided rib fractures, clavicle frac ture.
== END | disposition home or self-care (01) ==
LOC: RADXRMAIN 12:22
PROVIDERS: ATTEND Family Medicine
DX: S22.31XD Fracture of one rib, right side, subsequent encounter for fracture with routine healing (principal); R07.81 Pleurodynia; M89.8X1 Other specified disorders of bone, shoulder; M54.6 Pain in thoracic spine; Z91.81 History of falling
CPT/HCPCS: 71046; 71110; 72070; 72110

== ENCOUNTER → 2022-11-28 | Outpatient (CLI) | payer MEDICARE ==
--- NOTE | 2022-11-28 20:06 | BD ---
EXAMINATION TYPE: Axial Bone Density DATE OF EXAM: 11/28/2022 CLINICAL HISTORY: 67 years old Female. ICD-10 CODE: Z78.0 [employer] [place] Nuclear Medicine Study in the last 2 weeks: No Barium Study in the last week: No : No Height: 63.5" Weight: 191.1 FRAX RISK QUESTIONS: Alcohol (3 or more units per day): No Family History (Parent hip fracture): No Glucocorticoids (More than 3mos): No (Ex: prednisone, prednisolone, methylprednisolone, dexamethasone, and hydrocortisone). History of Fracture in Adulthood: Coccyx, right clavicle, right ribs Secondary Osteoporosis: 1. Type 1 Diabetes: No 2. Hyperthyroidism: No 3. Menopause before 45: Yes, age 25 4. Malnutrition: No 5. Chronic liver disease: No Rheumatoid Arthritis: No Current Tobacco Use: No RISK FACTORS HISTORY OF: Hip Fracture (Right/Left): No Spine Fracture: No History of Wrist Fracture: No Surgery to Spine/Hip(right/left)/Wrist (right/left): No Family History of Osteoporosis: No Active: Yes Diet low in dairy products/other sources of calcium: No Postmenopausal woman: No Lost more than 2 inches in height since high school: No Frequent falls: No Poor Health: No Hyperparathyroidism: No Adrenal Insufficiency: No MEDICATIONS: Prednisone or other steroids: No Thyroid Medications: No Osteoporosis Medications: No Additional Medications: Baby aspirin, vitamin D Additional History: None EXAM MEASUREMENTS: Bone mineral densitometry was performed using the [employer] System. Bone mineral density as measured about the Lumbar spine is: ----- L1-L4(G/cm2): 1.020 T Score Values are as follows: ----- L1: -1.8 ----- L2: -2.1 ----- L3: -1.1 ----- L4: -0.5 ----- L1-L4: -1.3 Z Score Values are as follows: ----- L1: -0.9 ----- L2: -1.2 ----- L3: -0.2 ----- L4: -0.4 ----- L1-L4: -0.4 Baseline @MPH Bone mineral density about the R hip (g/cm2): 0.872 Bone mineral density about the L hip (g/cm2): 0.848 T Score values are as follows: -----R Neck: -1.8 -----L Neck: -1.6 -----R Total: -1.3 -----L Total: -0.9 Z Score values are as follows: -----R Neck: -0.7 -----L Neck: -0.5 -----R Total: -0.5 -----L Total: -0.1 Baseline @MPH FRAX%s: The graph provided illustrates a 15.7% chance for a major osteoporotic fx and a 2.1% chance f or the hips probability for fx in 10 years time. IMPRESSION: Osteopenia (T Score between -2.5 and -1). There is slightly increased risk of fracture and the patient may be considered for treatment. Re-Screen 2-5 years. NOTE: T-SCORE=SD OF THE YOUNG ADULT MEAN.
--- NOTE | 2022-11-29 09:04 | MM ---
Reason for Exam: Screening (asymptomatic). Last mammogram was performed 1 year(s) and 1 month(s) ago. Patient History: Menarche at age 12. First Full-Term at age 19. Right ovary removed at age 25. Hysterectomy at age 25. Postmenopausal. Patient used Estrogen for 3 years. Maternal cousin had breast cancer. Maternal aunt had breast cancer. Mother had breast cancer. Risk Values: Bere 5 year model risk: 3.1%. NCI Lifetime model risk: 10.5%. Prior Study Comparison: 01/27/2018 Left Diagnostic Mammogram, [facility]. 09/25/2020 Bilateral Diagnostic Mammogram, [facility]. 10/10/2021 Bilateral Diagnostic Mammogram, [facility]. Tissue Density: There are scattered fibroglandular densities. Findings: Analyzed By CAD. Stable benign-appearing grouped round calcifications in the left breast. There is no suspicious new group of microcalcifications or new suspicious mass in either breast. Overall Assessment: Benign, BI-RAD 2 Management: Screening Mammogram of both breasts in 1 year. . Patient should continue monthly self-breast exams. A clinical breast exam by your physician is recommended on an annual basis. This exam should not preclude additional follow-up of suspicious palpable abnormalities. Note on Bere scores and lifetime risk: 1. A Bere score greater than 3% is considered moderate risk. If this is the case, consider specialist referral to assess eligibility for a risk reducing agent. 2. If overall lifetime risk for the development of breast cancer is 20% or higher, the patient may qualify for future screening with alternating mammogram and breast MRI. Electronically signed and approved by: Nitish Mondragon M.D.
== END | disposition home or self-care (01) ==
LOC: RADMAMWWP 15:29
PROVIDERS: ATTEND Family Medicine
DX: Z12.31 Encounter for screening mammogram for malignant neoplasm of breast (principal); Z13.820 Encounter for screening for osteoporosis; Z78.0 Asymptomatic menopausal state; Z80.3 Family history of malignant neoplasm of breast; M85.89 Other specified disorders of bone density and structure, multiple sites
CPT/HCPCS: 77063; 77067; 77080

== ENCOUNTER → 2022-12-14 | Outpatient (CLI) | payer MEDICARE ==
[2022-12-15 09:06] LABS: Blood Urea Nitrogen 17.6 mg/dL (9.0-27.0)
== END | disposition home or self-care (01) ==
LOC: LABWHC1 10:33
PROVIDERS: ATTEND Internal Medicine Cardiovascular Disease
DX: Z01.810 Encounter for preprocedural cardiovascular examination (principal)
CPT/HCPCS: 36415; 82565; 84520

== ENCOUNTER → 2023-12-31 | Outpatient (CLI) | payer MEDICARE ==
--- NOTE | 2023-12-31 15:17 | US ---
EXAMINATION TYPE: US kidneys/renal and bladder DATE OF EXAM: 12/31/2023 COMPARISON: NONE CLINICAL INDICATION: Female, 68 years old with history of R39.11HESITANCY OF MICTURITION; EXAM MEASUREMENTS: Right Kidney: 11.6 x 4.3 x 4.2 cm Left Kidney: 10.9 x 4.9 x 4.9 cm Post Void Residual Volume: 43 mL Right Kidney: No hydronephrosis or masses seen Left Kidney: No hydronephrosis or masses seen Bladder: wnl Bilateral Jets seen: no Normal Post Void Residual: yes There is no evidence for hydronephrosis at this point in time. No nephrolithiasis is seen. Cortical medullary differentiation is maintained bilaterally. No masses are identified. The urinary bladder is anechoic without filling defect. Bilateral ureteral jets are not seen. Normal postvoid residual. IMPRESSION: No hydronephrosis or nephrolithiasis. Unremarkable ultrasound appearance of the urinary bladder.
== END | disposition home or self-care (01) ==
LOC: RADUSWWP 14:39
PROVIDERS: ATTEND Family Medicine
DX: Z12.31 Encounter for screening mammogram for malignant neoplasm of breast (principal); R39.11 Hesitancy of micturition
CPT/HCPCS: 76770; 77063; 77067

== ENCOUNTER → 2024-01-01 | Outpatient (CLI) | payer MEDICARE ==
--- NOTE | 2024-01-18 18:10 | CTL ---
EXAMINATION TYPE: CT Low Dose Lung DATE OF EXAM ORDERED: 01/01/2024 HISTORY: 68-year-old female current smoker with 30 pack-year history. Lung cancer screening CT DLP: [address] CTDI: 2.45 mGy Automated exposure control for dose reduction was used. SCREENING VISIT: Baseline COMPARISON: 12/20/2020 TECHNIQUE: Low dose computed tomography scan was performed through the chest at 1 mm thick sections a nd reconstructed images in multiple planes at 1 mm and [address] DIAGNOSTIC QUALITY: Satisfactory FINDINGS: Heart upper limits of normal in size without pericardial effusion. Ectatic ascending aorta 3.9 cm not significantly changed. Minimal atherosclerotic arch calcifications with conventional arch vessel branching anatomy. No thoracic lymphadenopathy by CT size criteria. Strandy atelectasis/scarring in the lower lungs redemonstrated. Mild diffuse bronchial wall thickenin g. No consolidation or pleural effusion. 5 mm posterior right lower lobe pulmonary nodule on axial image 179 is unchanged. 4 mm right middle lobe pulmonary nodule, axial image 169. Tiny hiatal hernia. Visualized upper abdomen shows similar fullness of the left renal collecting syst em and suspected underlying parapelvic cysts. Bones: Accentuated midthoracic kyphosis with DISH. Old healed right-sided rib fracture deformities. IMPRESSION: 1. Lung-RADS 2, benign. A couple pulmonary nodules measuring up to 5 mm on baseline screening. One of these is stable back to 2020. Recommend smoking cessation. 2. Tiny hiatal hernia. CT LUNG RAD AND CT CHEST RECOMMENDATION: Lung-Rad 2 Benign Appearance or Behavior: Continue annual sc reening with LDCT in 12 months. S Modifier (other clinically significant findings): None
== END | disposition home or self-care (01) ==
LOC: RADCTMAIN 12:46
PROVIDERS: ATTEND Family Medicine
DX: Z12.2 Encounter for screening for malignant neoplasm of respiratory organs (principal); F17.210 Nicotine dependence, cigarettes, uncomplicated; K44.9 Diaphragmatic hernia without obstruction or gangrene; R91.8 Other nonspecific abnormal finding of lung field
CPT/HCPCS: 71271

== ENCOUNTER → 2024-01-07 | Outpatient (CLI) | payer MEDICARE ==
--- NOTE | 2024-01-07 10:41 | MM ---
Reason for Exam: Additional evaluation requested from abnormal screening. Last screening mammogram was performed less than 1 month ago. Patient History: Menarche at age 12. First Full-Term at age 19. Right ovary removed at age 25. Hysterectomy at age 25. Postmenopausal. Patient has history of breast feeding. Patient used Estrogen for 3 years. Maternal cousin had breast cancer. Maternal aunt had breast cancer. Mother had breast cancer. Risk Values: Bere 5 year model risk: 3.2%. NCI Lifetime model risk: 10.1%. Prior Study Comparison: 01/27/2018 Left Diagnostic Mammogram, [facility]. 01/27/2018 Left Diagnostic Ultrasound, [facility]. 09/25/2020 Bilateral Diagnostic Mammogram, [facility]. 09/25/2020 Left Diagnostic Ultrasound, [facility]. 05/04/2021 Left Diagnostic Ultrasound, [facility]. 10/10/2021 Bilateral Diagnostic Mammogram, [facility]. 11/28/2022 Bilateral MG 3D screening mammo w/cad, [facility]. 12/31/2023 Bilateral MG 3D screening mammo w/cad, [facility]. Tissue Density: Right: There are scattered areas of fibroglandular density. Findings: Analyzed By CAD. Subareolar nodular asymmetric density persists on the spot 3-D CC view. However, no persisting abnormality is identified on the 3-D ML lower 3-D lateral views. Findings suggest superimposition shadow. Further ultrasound evaluation recommended. Overall Assessment: Incomplete: need additional imaging evaluation, BI-RAD 0 Management: Diagnostic Breast Ultrasound of the right breast. Electronically signed and approved by: Flaquita Adan M.D. Radiologist
--- NOTE | 2024-01-07 10:54 | USB ---
Reason for Exam: Additional evaluation requested from abnormal screening. Patient History: Menarche at age 12. First Full-Term at age 19. Right ovary removed at age 25. Hysterectomy at age 25. Postmenopausal. Patient has history of breast feeding. Patient used Estrogen for 3 years. Maternal cousin had breast cancer. Maternal aunt had breast cancer. Mother had breast cancer. Risk Values: Bere 5 year model risk: 3.2%. NCI Lifetime model risk: 10.1%. Technique: Method: Targeted. Prior Study Comparison: 10/10/2021 Bilateral Diagnostic Mammogram, [facility]. 11/28/2022 Bilateral MG 3D screening mammo w/cad, [facility]. 12/31/2023 Bilateral MG 3D screening mammo w/cad, [facility]. Findings: The periareolar of the right breast, the axilla of the right breast and the retroareolar of the right breast were scanned. Targeted ultrasound subareolar and periareolar as well as scanning of the axilla. No solid or cystic lesion. No axillary lymphadenopathy. Overall Assessment: Probably benign, BI-RAD 3 Management: Diagnostic Mammogram of the right breast in 6 months. A clinical breast exam by your physician is recommended on an annual basis and results should be correlated with mammographic findings. This exam should not preclude additional follow-up of suspicious palpable abnormalities. Results were given to the patient verbally at the time of exam. Note on Bere scores and lifetime risk: 1. A Bere score greater than 3% is considered moderate risk. If this is the case, consider specialist referral to assess eligibility for a risk reducing agent. 2. If overall lifetime risk for the development of breast cancer is 20% or higher, the patient may qualify for future screening with alternating mammogram and breast MRI. Electronically signed and approved by: Flaquita Adan M.D. Radiologist
== END | disposition home or self-care (01) ==
LOC: RADMAMWWP 09:52
PROVIDERS: ATTEND Family Medicine
DX: R92.8 Other abnormal and inconclusive findings on diagnostic imaging of breast (principal); R92.321 Mammographic fibroglandular density, right breast; Z78.0 Asymptomatic menopausal state; Z80.3 Family history of malignant neoplasm of breast
CPT/HCPCS: 77065; 76642; G0279; 77061

== ENCOUNTER → 2025-01-03 | Outpatient (CLI) | payer MEDICARE ==
--- NOTE | 2025-01-04 14:48 | CTL ---
EXAMINATION TYPE: CT Low Dose Lung DATE OF EXAM: 01/03/2025 12:48 PM COMPARISON: 01/01/2024 CLINICAL INDICATION: Female, 69 years old with history of Z12.2 LUNG CA SCR F17.210 CURRENT SMOKER, F /u lung screening for 1ppd x26 years, current smoker. Hx of COPD and CAD, History of tobacco use. TECHNIQUE: Low Dose CT Lung Screening, Low dose computed tomography scan was performed through the est at 1 millimeter thick sections and reconstructed images in the coronal plane at 1 mm thick sectio ns. IV CONTRAST USED: None. SCREENING VISIT: First visit CT DLP: 72 mGycm, Automated exposure control for dose reduction was used. CT CTDI: 1.8 mGy FINDINGS: CT DIAGNOSTIC QUALITY: Satisfactory LUNG NODULES: Not presentLeft lung: no nodules identified.Right lung: no nodules identified. LUNGS: COPD: Severity: None Fibrosis: Severity:None Lymph nodes: None Other findings: None RIGHT PLEURAL SPACE: Effusion: None Calcification: None Thickening: None Pneumothorax: None LEFT PLEURAL SPACE: Effusion: None Calcification: None Thickening: None Pneumothorax: None HEART: * Size within normal limits. * No significant coronary artery calcifications. OTHER FINDINGS: Upper abdomen: No significant abnormality Bony thorax: Degenerative changes Supraclavicular region: No significant abnormalityOther: No significant abnormalityI IMPRESSION: 1. No clinically significant pulmonary nodules. 2. Mild emphysema. CT LUNG RAD AND CT CHEST RECOMMENDATION: Lung-Rad 1 Negative: Continue annual screening with LDCT in 12 months. S Modifier (other clinically significant findings): [facility], , 01/04/2025 2:46 PM
== END | disposition home or self-care (01) ==
LOC: RADCTMAIN 12:21
PROVIDERS: ATTEND Internal Medicine Critical Care Medicine
DX: Z12.2 Encounter for screening for malignant neoplasm of respiratory organs (principal); F17.210 Nicotine dependence, cigarettes, uncomplicated; J43.9 Emphysema, unspecified
CPT/HCPCS: 71271

== ENCOUNTER → 2025-01-27 | Outpatient (CLI) | payer MEDICARE ==
--- NOTE | 2025-01-27 19:15 | US ---
EXAMINATION TYPE: US thyroid st tissue head/neck DATE OF EXAM: 01/27/2025 COMPARISON: NONE CLINICAL INDICATION: Female, 69 years old with history of R79.89 OTHER SPECIFIED ABNORMAL FINDINGS OF BLOOD; Abnormal thyroid blood test, patient started thyroid meds. TECHNIQUE: Grayscale and color Doppler imaging of the thyroid gland. FINDINGS: GLAND SIZE: Right Lobe: 3.9 x 1.6 x 1.8 cm Overall Parenchyma: Slightly heterogeneous. Left Lobe: 3.7 x 1.5 x 1.5 cm Overall Parenchyma: Slightly heterogeneous. Isthmus Thickness: 0.32 cm NODULES RIGHT: # of nodules measured on right: 1 tiny 4 mm hypoechoic TR4 nodule at the posterior midpole. LEFT: # of nodules measured on left: 0 ISTHMUS: # of nodules measured in the isthmus: 0 Bilateral neck scanned, no evidence of lymphadenopathy. IMPRESSION: A solitary tiny 4 mm TR4 nodule at the right midpole of questionable clinical significance. Highest TI-RADS level nodule reported: 2017 ACR TI-RADS LEVEL: TI-RADS 4 - Moderately Suspicious: Follow if > 1 cm, FNA if > 1.5 cm [facility], Workstation: [employer], 01/27/2025 7:12 PM
== END | disposition home or self-care (01) ==
LOC: RADUSWWP 13:38
PROVIDERS: ATTEND Family Medicine
DX: E04.1 Nontoxic single thyroid nodule (principal); R79.89 Other specified abnormal findings of blood chemistry
CPT/HCPCS: 76536

== ENCOUNTER → 2025-01-28 | Outpatient (CLI) | payer MEDICARE ==
--- NOTE | 2025-01-31 08:09 | MM ---
Reason for Exam: Screening (asymptomatic). Last mammogram was performed 1 year(s) and 1 month(s) ago. Patient History: Menarche at age 12. First Full-Term at age 19. Right ovary removed at age 25. Hysterectomy at age 25. Postmenopausal. Patient has history of breast feeding. Patient used Estrogen for 3 years. Maternal cousin had breast cancer. Maternal aunt had breast cancer. Mother had breast cancer. Risk Values: Bere 5 year model risk: 3.2%. NCI Lifetime model risk: 9.7%. Prior Study Comparison: 12/31/2023 Bilateral MG 3D screening mammo w/cad, [facility]. 01/07/2024 Right MG 3D work up w/cad RT, [facility]. 08/25/2024 Right MG 3D diag mammo w/cad RT, [facility]. Tissue Density: There are scattered areas of fibroglandular density. Findings: Analyzed By CAD. Chronic nodularity on the left and unchanged asymmetric densities on the right. There is no suspicious group of microcalcifications or new suspicious mass in either breast. Overall Assessment: Benign, BI-RAD 2 Management: Screening Mammogram of both breasts in 1 year. See note below in regards to the patient's increased 5 year Bere score. Patient should continue monthly self-breast exams. A clinical breast exam by your physician is recommended on an annual basis. This exam should not preclude additional follow-up of suspicious palpable abnormalities. Note on Bere scores and lifetime risk: 1. A Bere score greater than 3% is considered moderate risk. If this is the case, consider specialist referral to assess eligibility for a risk reducing agent. 2. If overall lifetime risk for the development of breast cancer is 20% or higher, the patient may qualify for future screening with alternating mammogram and breast MRI. [facility], , 01/31/2025 8:06 AM. Electronically signed and approved by: Flaquita Adan M.D. Radiologist
== END | disposition home or self-care (01) ==
LOC: RADMAMWWP 16:36
PROVIDERS: ATTEND Family Medicine
DX: Z12.31 Encounter for screening mammogram for malignant neoplasm of breast (principal); R92.323 Mammographic fibroglandular density, bilateral breasts; Z78.0 Asymptomatic menopausal state; Z80.3 Family history of malignant neoplasm of breast
CPT/HCPCS: 77063; 77067